=== PATIENT | male | born 1975 | race Caucasian/White ===

== ENCOUNTER 2017-01-17 17:20 | Inpatient (IN) | payer OTHER ==
[~2017-01-17] VITALS: Ht 182.9 cm; Wt 58.7 kg
[2017-01-17 18:20] LABS: INTER. NORMALIZED RATIO 2.2; PROTHROMBIN TIME 25.3 SEC (10.2-12.9)
[2017-01-17 18:25] LABS: CHLORIDE 102 mEq/L (99-109); POTASSIUM 3.9 mEq/L (3.7-5.4); SODIUM 135 mEq/L (136-147)
[2017-01-17 18:27] LABS: GLUCOSE 99 mg/dL (70-99)
[2017-01-17 18:28] LABS: ANION GAP 15 MEQ/L (2-14)
[2017-01-17 18:29] LABS: TOTAL BILIRUBIN 5.1 mg/dL (0.0-1.0)
[2017-01-17 18:30] LABS: ALKALINE PHOSPHATASE 113 IU/L (3-129)
[2017-01-17 18:31] LABS: GFR ESTIMATE (CALCULATED) > 59 mL/min/; HEMATOCRIT 19.3 % (38.0-50.0); MCH 26.3 PG (29.0-34.0); MCHC 33.2 G/DL (30.0-36.0); MCV 79.4 FL (86-99); MEAN PLAT.VOLUME 11.5 uM^3 (9.0-12.4); PLATELET COUNT 167 K/uL (156-360); RBC DIS.WIDTH-CV 23.1 % (11.8-14.6); RBC DIS.WIDTH-SD 66.2 % (39-53); RED BLOOD COUNT 2.43 M/uL (4.00-5.50); WHITE BLOOD COUNT 10.8 K/uL (4.1-10.2)
[2017-01-17 18:32] LABS: DIRECT BILIRUBIN 2.9 mg/dL (0.0-0.3); UREA NITROGEN (BUN) 16 mg/dL (9-23)
[2017-01-17 18:34] LABS: LIPASE 77 U/L (1.0-51.0)
[2017-01-17] MEDS ORDERED: PROTONIX40 MG PO (19:23)
[2017-01-17] MEDS ORDERED: ATIVAN0.5 MG PO (19:23)
[2017-01-17] MEDS ORDERED: COREG3.125 M1 PO (19:24)
[2017-01-17] MEDS ORDERED: DAILY VITAMIN1 EAC4 PO (19:30)
[2017-01-17 20:22] VITALS: BP 81/45
[2017-01-17] MEDS ORDERED: ZOFRAN ODT4 MG PO (20:23)
[2017-01-17] MEDS ORDERED: REGLAN10 MG PO (20:23)
[2017-01-17] MEDS ORDERED: ADVIL200 MG PO (20:23)
[2017-01-17] MEDS ORDERED: RESTORIL15 MG PO (20:24)
[2017-01-17 20:45] VITALS: BP 77/41
[2017-01-17 21:50] VITALS: BP 84/44
[2017-01-17 22:05] VITALS: BP 84/49
[2017-01-17 23:41] VITALS: BP 106/68
[2017-01-18] VITALS (29 sets, daily range): BP systolic 90–121; BP diastolic 49–82
[2017-01-18 00:35] LABS: METH RESISTANT S AUREUS PCR NEGATIVE (NEGATIVE)
[2017-01-18 00:39] LABS: PROBE CHECK PASS; SPECIMEN PROCESSING CONTROL PASS
[2017-01-18 05:26] LABS: PROTHROMBIN TIME 22.4 SEC (10.2-12.9)
[2017-01-18 05:29] LABS: PTT 35.4 SEC (25-37)
[2017-01-18 09:40] LABS: PTT 36.7 SEC (25-37)
[2017-01-18 09:57] LABS: HEMATOCRIT 21.1 % (38.0-50.0); MCH 27.7 PG (29.0-34.0); MCHC 34.6 G/DL (30.0-36.0); MCV 79.9 FL (86-99); RBC DIS.WIDTH-CV 22.1 % (11.8-14.6); RBC DIS.WIDTH-SD 63.3 % (39-53); RED BLOOD COUNT 2.64 M/uL (4.00-5.50); WHITE BLOOD COUNT 7.3 K/uL (4.1-10.2)
[2017-01-18 10:01] LABS: MEAN PLAT.VOLUME 10.6 uM^3 (9.0-12.4); PLAT.SUFFICIENCY DECREASED; PLATELET COUNT 104 K/uL (156-360)
[2017-01-18 10:21] LABS: ANION GAP 8 MEQ/L (2-14); CHLORIDE 107 MEQ/L (99-109); GFR ESTIMATE (CALCULATED) > 59 mL/min/; GLUCOSE 86 mg/dL (70-99); MAGNESIUM 1.3 mg/dl (1.3-2.7); POTASSIUM 3.8 MEQ/L (3.7-5.4); SAMPLE HEMOLYSIS CHECK 0; SAMPLE ICTERIC CHECK 2; SAMPLE LIPEMIA CHECK 0; SODIUM 139 MEQ/L (136-147); UREA NITROGEN (BUN) 17 mg/dL (9-23)
[2017-01-18 15:32] LABS: HEMATOCRIT 26.1 % (38.0-50.0); MCH 28.2 PG (29.0-34.0); MCHC 34.9 G/DL (30.0-36.0); MCV 80.8 FL (86-99); MEAN PLAT.VOLUME 10.9 uM^3 (9.0-12.4); PLATELET COUNT 106 K/uL (156-360); RBC DIS.WIDTH-CV 19.9 % (11.8-14.6); RBC DIS.WIDTH-SD 57.5 % (39-53); WHITE BLOOD COUNT 7.7 K/uL (4.1-10.2)
[2017-01-18 15:37] LABS: RED BLOOD COUNT 3.23 M/uL (4.00-5.50)
[2017-01-18 15:59] LABS: INTER. NORMALIZED RATIO 1.5; PROTHROMBIN TIME 16.7 SEC (10.2-12.9)
[2017-01-18 16:02] LABS: PTT 36.5 SEC (25-37)
[2017-01-18 16:50] LABS: FIBRINOGEN 236 mg/dL (150-450)
[2017-01-18 21:54] LABS: HEMATOCRIT 26.2 % (38.0-50.0); MCH 28.1 PG (29.0-34.0); MCHC 35.1 G/DL (30.0-36.0); MCV 80.1 FL (86-99); MEAN PLAT.VOLUME 10.7 uM^3 (9.0-12.4); PLATELET COUNT 101 K/uL (156-360); RBC DIS.WIDTH-CV 20.2 % (11.8-14.6); RBC DIS.WIDTH-SD 57.2 % (39-53); RED BLOOD COUNT 3.27 M/uL (4.00-5.50); WHITE BLOOD COUNT 9.2 K/uL (4.1-10.2)
[2017-01-19] VITALS (14 sets, daily range): BP systolic 100–114; BP diastolic 54–80
[2017-01-19 05:30] LABS: HEMATOCRIT 25.2 % (38.0-50.0); MCH 28.6 PG (29.0-34.0); MCHC 35.3 G/DL (30.0-36.0); MEAN PLAT.VOLUME 10.8 uM^3 (9.0-12.4); PLATELET COUNT 111 K/uL (156-360); RBC DIS.WIDTH-CV 20.3 % (11.8-14.6); RBC DIS.WIDTH-SD 57.7 % (39-53); RED BLOOD COUNT 3.11 M/uL (4.00-5.50); WHITE BLOOD COUNT 7.6 K/uL (4.1-10.2)
[2017-01-19 05:39] LABS: INTER. NORMALIZED RATIO 1.7; PROTHROMBIN TIME 18.5 SEC (10.2-12.9)
[2017-01-19 05:42] LABS: PTT 34.5 SEC (25-37)
[2017-01-19 06:05] LABS: ALKALINE PHOSPHATASE 68 IU/L (3-129); ANION GAP 9 MEQ/L (2-14); CHLORIDE 106 MEQ/L (99-109); GFR ESTIMATE (CALCULATED) > 59 mL/min/; GLUCOSE 73 mg/dL (70-99); POTASSIUM 3.3 MEQ/L (3.7-5.4); SAMPLE HEMOLYSIS CHECK 0; SAMPLE ICTERIC CHECK 2; SAMPLE LIPEMIA CHECK 0; SODIUM 137 MEQ/L (136-147); TOTAL BILIRUBIN 5.9 MG/DL (0.0-1.0); UREA NITROGEN (BUN) 8 mg/dL (9-23)
[2017-01-19 06:15] LABS: MAGNESIUM 1.7 mg/dl (1.3-2.7)
[2017-01-19 06:16] LABS: BASOPHIL COUNT 0.1 K/uL (0-0.1); EOSINOPHIL (%) 7.1 % (0-5); EOSINOPHIL COUNT 0.5 K/uL (0-0.3); IMMATURE GRANULOCYTE (%) 0.5 % (0.0-0.7); LYMPHOCYTE COUNT 0.9 K/uL (1.0-2.8); MONOCYTE (%) 14.1 % (3-12); MONOCYTE COUNT 1.1 K/uL (0-0.8); NEUTROPHIL (%) 65.3 % (45-76)
[2017-01-19 10:48] LABS: HEMATOCRIT 27.7 % (38.0-50.0); MCV 82.2 FL (86-99)
[2017-01-19 16:45] LABS: HEMATOCRIT 28.6 % (38.0-50.0); MCV 81.9 FL (86-99)
[2017-01-19 23:17] LABS: HEMATOCRIT 27.2 % (38.0-50.0); MCV 80.2 FL (86-99)
[2017-01-20] VITALS: BP 104/75
[2017-01-20 04:00] VITALS: BP 109/73
[2017-01-20 05:57] LABS: BASOPHIL COUNT 0.1 K/uL (0-0.1); EOSINOPHIL (%) 5.2 % (0-5); EOSINOPHIL COUNT 0.4 K/uL (0-0.3); HEMATOCRIT 27.4 % (38.0-50.0); IMMATURE GRANULOCYTE (%) 0.4 % (0.0-0.7); INSTRUMENT ABS NEUTROPHIL CT 5.7 K/uL; LYMPHOCYTE COUNT 0.8 K/uL (1.0-2.8); MCH 28.3 PG (29.0-34.0); MCHC 34.7 G/DL (30.0-36.0); MCV 81.5 FL (86-99); MEAN PLAT.VOLUME 10.9 uM^3 (9.0-12.4); MONOCYTE (%) 15.4 % (3-12); MONOCYTE COUNT 1.3 K/uL (0-0.8); NEUTROPHIL (%) 68.8 % (45-76); NEUTROPHIL COUNT 5.7 K/uL (1.8-6.4); PLATELET COUNT 126 K/uL (156-360); RBC DIS.WIDTH-CV 20.9 % (11.8-14.6); RBC DIS.WIDTH-SD 59.2 % (39-53); RED BLOOD COUNT 3.36 M/uL (4.00-5.50); WHITE BLOOD COUNT 8.2 K/uL (4.1-10.2)
[2017-01-20 06:16] LABS: INTER. NORMALIZED RATIO 1.8; PROTHROMBIN TIME 20.3 SEC (10.2-12.9)
[2017-01-20 06:23] LABS: ALKALINE PHOSPHATASE 83 IU/L (3-129); ANION GAP 9 MEQ/L (2-14); CHLORIDE 99 MEQ/L (99-109); GFR ESTIMATE (CALCULATED) > 59 mL/min/; GLUCOSE 91 mg/dL (70-99); MAGNESIUM 1.6 mg/dl (1.3-2.7); POTASSIUM 3.8 MEQ/L (3.7-5.4); SAMPLE HEMOLYSIS CHECK 0; SAMPLE ICTERIC CHECK 1; SAMPLE LIPEMIA CHECK 0; SODIUM 133 MEQ/L (136-147); TOTAL BILIRUBIN 5.2 MG/DL (0.0-1.0); UREA NITROGEN (BUN) 7 mg/dL (9-23)
[2017-01-20 08:00] VITALS: BP 104/68
[2017-01-20 10:00] VITALS: BP 96/70
[2017-01-20] MEDS ORDERED: FOLIC ACID1 MG PO (11:21)
[2017-01-20] MEDS ORDERED: LEVAQUIN500 MG PO (11:21)
[2017-01-20] MEDS ORDERED: Thiamine,Vitamin B1 PO (11:21)
[2017-01-20] MEDS ORDERED: ZOFRAN ODT4 MG PO (11:21)
[2017-01-20 11:32] LABS: MCV 82.4 FL (86-99)
== END 2017-01-20 11:55 | disposition home or self-care (01) | DRG 919 ==
LOC: EDBD 17:20 → EME 17:20 → EDOF 19:33 → ENRESERV 19:35 → 4WEST 22:23
PROVIDERS: Emergency Medicine; Internal Medicine Pulmonary Disease; Student in an Organized Health Care Education/Training Program
DX: T85.838A Hemorrhage due to other internal prosthetic devices, implants and grafts, initial encounter (principal); Y83.1 Surgical operation with implant of artificial internal device as the cause of abnormal reaction of the patient, or of later complication, without mention of misadventure at the time of the procedure; K70.31 Alcoholic cirrhosis of liver with ascites; I85.11 Secondary esophageal varices with bleeding; D62 Acute posthemorrhagic anemia; K92.1 Melena; F10.20 Alcohol dependence, uncomplicated; E83.42 Hypomagnesemia; E46 Unspecified protein-calorie malnutrition; Z68.1 Body mass index [BMI] 19.9 or less, adult
CPT/HCPCS: 76705; 80048; 80053; 80076; 82105 90; 82140; 83690; 83735; 84100; 85014; 85018; 85025; 85027; 85384; 85610; 85730; 86850; 86900; 86901; 86920; 87641; 99281; 99285; B4082; C9113; J0696; J1200; J2060; J2354; J2405; J2765; J3411; J3430; J3475; J7030; J7050; P9016; P9017; S0028